=== PATIENT | female | born 1965 | race Caucasian/White ===

== ENCOUNTER → 2021-04-22 | Day surgery (SDC) | payer OTHER, MEDICARE ==
[~2021-04-22] VITALS: Ht 157.5 cm; Wt 62.1 kg
[~2021-04-22] MED LIST: ASCORBIC ACID500 MG PO; ASPIRIN EC81 MG PO; DICYCLOMINE HCL20 MG PO; MIRALAX17 GM PO; ONDANSETRON ODT4 MG PO; PERCOCET 5-3251 EACH PO; PROZAC20 MG PO; TOPAMAX50 MG PO; VITAMIN D310 MC3 PO; ZINC PO; ZYRTEC10 MG PO
== END | disposition home or self-care (01) ==
LOC: FAS 09:00
DX: K64.2 Third degree hemorrhoids (principal); K64.4 Residual hemorrhoidal skin tags; F17.200 Nicotine dependence, unspecified, uncomplicated; F43.10 Post-traumatic stress disorder, unspecified; F41.9 Anxiety disorder, unspecified; F32.A Depression, unspecified; Z88.1 Allergy status to other antibiotic agents; Z88.8 Allergy status to other drugs, medicaments and biological substances; Z79.82 Long term (current) use of aspirin; Z79.899 Other long term (current) drug therapy; Z90.49 Acquired absence of other specified parts of digestive tract; Z86.010 Personal history of colon polyps; Z87.42 Personal history of other diseases of the female genital tract; Z98.51 Tubal ligation status; Z72.89 Other problems related to lifestyle
CPT/HCPCS: J0694; J1100; J1885; J2250; J2405; J2704; J3010; J7120

== ENCOUNTER 2021-07-08 07:09 | Emergency (ER) | payer OTHER, MEDICARE ==
[2021-07-08 07:53] LABS: BASOPHIL 1.1 % (0-2); EOSINOPHIL 2.6 % (0-5); HCT 41.4 % (37.0-47.0); LYMPHOCYTE 28.4 % (15-48); MCH 31.7 pg (25.0-31.0); MCHC 33.8 g/dL (32.0-36.0); MCV 93.7 fL (78.0-100.0); MPV 9.4 fL (6.0-9.5); NEUTROPHIL 60.6 % (41-80); NRBC 0; PLT 274 K/uL (150-400); RBC 4.42 M/uL (4.20-5.40); RDW 11.9 % (11.5-14.0); WBC 6.6 K/uL (4.0-10.5)
[2021-07-08 08:01] LABS: INR 1.03 (0.9-1.2); PROTHROMBIN TIME 12.9 SECONDS (11.8-13.4); PTT 24.7 SECONDS (24.4-34.7)
[2021-07-08 08:02] LABS: D-DIMER 0.3 ug/mLFEU (0.00-0.41)
[2021-07-08 08:12] LABS: ALBUMIN 3.7 g/dL (3.4-5.0); BILIRUBIN - TOTAL 0.2 mg/dL (0.2-1.0); BUN/CREAT RATIO (CALC) 15.3 RATIO; CREATININE 0.72 mg/dL (0.51-0.95); GLOBULIN (CALCULATION) 2.6 g/dL; POTASSIUM 4.7 mmol/L (3.5-5.1); TOTAL PROTEIN 6.3 g/dL (6.4-8.2)
[2021-07-08 08:30] LABS: CORONAVIRUS 2019 SARS-COV-2 NEGATIVE (NEGATIVE); INFLUENZA A NAA NEGATIVE (NEGATIVE)
== END 2021-07-08 11:15 | disposition home or self-care (01) ==
LOC: FER 07:09
PROVIDERS: Emergency Medicine
DX: R07.89 Other chest pain (principal); Z20.822 Contact with and (suspected) exposure to COVID-19; Z88.1 Allergy status to other antibiotic agents; Z88.5 Allergy status to narcotic agent
CPT/HCPCS: 36415; 71045; 80053; 84484; 85025; 85379; 85610; 85730; 93005; U0002